=== PATIENT | male | born 1960 | race Caucasian/White ===

== ENCOUNTER → 2020-05-21 | Outpatient (CLI) | payer OTHER | LOC: CAT 09:53 | PROVIDERS: ATTEND Family Medicine | DX: Z13.6 Encounter for screening for cardiovascular disorders (principal); I25.10 Atherosclerotic heart disease of native coronary artery without angina pectoris; E78.00 Pure hypercholesterolemia, unspecified ==

== ENCOUNTER → 2020-06-28 | Outpatient (CLI) | payer BC | LOC: SJCVCIMAG 07:27 | PROVIDERS: ATTEND Internal Medicine Cardiovascular Disease | DX: I11.9 Hypertensive heart disease without heart failure (principal); I49.3 Ventricular premature depolarization; R94.31 Abnormal electrocardiogram [ECG] [EKG] ==

== ENCOUNTER → 2021-06-28 | Outpatient (CLI) | payer BC | LOC: SJCVCIMAG 07:45 | PROVIDERS: ATTEND Internal Medicine Cardiovascular Disease | DX: I10 Essential (primary) hypertension (principal); R93.1 Abnormal findings on diagnostic imaging of heart and coronary circulation ==